=== PATIENT | male | born 1965 | race Caucasian/White ===

== ENCOUNTER 2020-08-11 00:19 | Outpatient (CLI) | payer OTHER, SELFPAY ==
[2020-08-11 19:24] LABS: SARS-CoV-2 RNA PCR Negative
== END 2020-08-11 00:20 | disposition home or self-care (01) ==
LOC: ANHCOVIDDT 00:19
PROVIDERS: PCP Physician Assistant; Visit Provider Internal Medicine Gastroenterology
DX: Z20.828 Contact with and (suspected) exposure to other viral communicable diseases (principal)
CPT/HCPCS: 87635; C9803; U0003

== ENCOUNTER 2020-08-14 00:45 | Day surgery (SDC) | payer OTHER, SELFPAY ==
[2020-08-08 08:24] VITALS: BMI 33.5
[2020-08-14 07:20] VITALS: BMI 33.3
[2020-08-14 07:22] VITALS: BP 143/93; PULSE 105; RESP 16; TEMP 36.2; O2SAT 97
[2020-08-14] MEDS: LACTATED RINGERS 1,000 ML 150 ML IV CONT (07:40)
--- NOTE | 2020-08-14 07:48 | WPDGICN ---
Assessment and Plan Assessment and plan (1) GERD (gastroesophageal reflux disease): Qualifiers: Esophagitis presence: esophagitis presence not specified Qualified Code(s): K21.9 - Gastro-esophageal reflux disease without esophagitis Code(s): K21.9 - Gastro-esophageal reflux disease without esophagitis Status: Acute Assessment and Plan: Because of chronic GE reflux disease. Epigastric pain that is not gone away with omeprazole 20 mg p.o. daily. Plan is for surveillance EGD. Lane diet advised further recommendations will be given after endoscopy. (2) Family history of colon cancer in mother: Code(s): Z80.0 - Family history of malignant neoplasm of digestive organs Status: Acute Assessment and Plan: Patient's mother had colon cancer. For this reason screening colonoscopy advised of at least 5 year intervals in the future. GI Consult Note Consult date/time: 08/14/20 07:48 HPI: Ramon Thompson is a 55 year old male Seen in evaluation at the request of Dr. Sallie Youngblood. patient presents for screening colonoscopy. His current weight appetite bowel movements are normal. Family history is significant his mother had colon cancer. Patient also complains of epigastric pain after eating this been present for more than 1 year. He notes associated regurgitation and belching. Symptoms occur at least several times a week. Patient denies any weight loss. He has had no obvious bleeding. Current medications included trial of omeprazole 20 mg p.o. daily. Review of Systems Review of Systems: All systems reviewed & are unremarkable except as noted in HPI and below PMFSH Past Medical History Medical History (Updated 08/14/20 @ 07:49 by Ted Almanza MD) Anxiety GERD (gastroesophageal reflux disease) Hypercholesterolemia Hypothyroidism Low testosterone in male Surgical History Surgical History History of repair of ACL 2001 & 06/2019 History of umbilical hernia repair Family History Family History Father Diabetes mellitus Hypertension Family history of kidney disease Family history of diabetes mellitus in first degree relative Grandparent Diabetes mellitus Family history of cardiovascular disease Mother Family history of hypercholesterolemia Sibling Family history of arthritis Other Cerebrovascular accident Social History Social History Smoking status: Never smoker Second hand tobacco smoke exposure: Yes (co-workers occasionally) Alcohol intake: current Drinks per week: 6 Substance use: never Substance use type: does not use Living arrangements: alone Gender identity (if verbalized by the patient): Male Spiritual care concerns: No Meds Home Medications and Allergies Home Medications Medication Instructions Recorded Confirmed Type testosterone 30 mg/actuation (1.5 1 pump TOPICAL DAILY 06/06/20 08/08/20 History mL) transderm solution metered pump atorvastatin 20 mg tablet 20 mg PO DAILY #90 tablet 06/07/20 08/08/20 Rx levothyroxine 175 mcg tablet 175 mcg PO DAILY #90 tablet 06/07/20 08/08/20 Rx Allergies Allergy/AdvReac Type Severity Reaction Status Date / Time Penicillins Allergy Unknown Skin Verified 08/14/20 07:18 irritation Vital Signs Vital Signs - 24 hr 08/14/20 07:22 Temperature 97.1 F L Pulse Rate 105 H Respiratory Rate 16 Blood Pressure 143/93 H Pulse Oximetry 97 Exam Narrative: Exam Narrative: Physical exam reveals patient to be alert. Vital signs stable. HEENT exam unremarkable. Lungs are clear to auscultation and percussion. Heart is without murmur or extra sounds. Abdominal exam bowel sounds are present soft nontender with no organomegaly. Digital external rectal exam normal.
--- NOTE | 2020-08-14 08:05 | WPDANESEPPF ---
Anes - Initial Pre Proc Eval Procedure: Operation Date: 08/14/20 08:30 Proposed Procedures p Esophagogastroduodenoscopy & Screening Colonoscopy - Ted Almanza MD Date/Time: 08/14/20 08:05 Surgeon: Ted Almanza MD Pre Op Diagnosis: Neoplasm Screen/ Fam Hx Colon Ca/ GERD Patient Data Age: 55 Gender: M Height: 5 ft 8 in Weight: 99.5 kg Last Vital Signs Temp 97.1 F L 08/14/20 07:22 Pulse 105 H 08/14/20 07:22 Resp 16 08/14/20 07:22 BP 143/93 H 08/14/20 07:22 Pulse Ox 97 08/14/20 07:22 Allergies Allergy/AdvReac Type Severity Reaction Status Date / Time Penicillins Allergy Unknown Skin Verified 08/14/20 07:18 irritation Home Medications Medication Instructions Recorded Confirmed Type testosterone 30 mg/actuation (1.5 1 pump TOPICAL DAILY 06/06/20 08/08/20 History mL) transderm solution metered pump atorvastatin 20 mg tablet 20 mg PO DAILY #90 tablet 06/07/20 08/08/20 Rx levothyroxine 175 mcg tablet 175 mcg PO DAILY #90 tablet 06/07/20 08/08/20 Rx Patient hx anesthesia problems: none Family hx anesthesia problems: none PMFSH Past Medical History Medical History (Updated 08/14/20 @ 07:49 by Ted Almanza MD) Anxiety GERD (gastroesophageal reflux disease) Hypercholesterolemia Hypothyroidism Low testosterone in male Surgical History Surgical History History of repair of ACL 2001 & 06/2019 History of umbilical hernia repair Family History Family History Father Diabetes mellitus Hypertension Family history of kidney disease Family history of diabetes mellitus in first degree relative Grandparent Diabetes mellitus Family history of cardiovascular disease Mother Family history of hypercholesterolemia Sibling Family history of arthritis Other Cerebrovascular accident Social History Social History Smoking status: Never smoker Second hand tobacco smoke exposure: Yes (co-workers occasionally) Alcohol intake: current Drinks per week: 6 Substance use: never Substance use type: does not use Living arrangements: alone Gender identity (if verbalized by the patient): Male Spiritual care concerns: No Anes - Eval Final PreProcedure Day of Procedure 08/14/20 08:05 Patient weight: overweight Heart: regular rate and rhythm Lungs: clear to auscultation Airway: Mallampati scale class II Neurological: alert and oriented Last oral intake: >/= 8 hours ASA classification: II Emergent: no Anesthetic plan: proceed Anesthesia type and monitoring: general GIVS and standard monitoring Informed Consent: The patient's anesthetic plan and its attendant risks and benefits were discussed with the patient/family/POA. Questions were solicited and answers provided to the satisfaction of the patient/family/POA.
[2020-08-14] MEDS: BENZOCAINE (*SP) 60 ML SPRAY CAN (HURRICAINE) 1 SPRAY MUCOUS MEM (08:11)
--- NOTE | 2020-08-14 08:22 | SUR.OPER ---
EGD ENDED 816 COLONOSCOPY STARTED 821
[2020-08-14 08:37] VITALS: BP 144/94; PULSE 92; RESP 22; O2SAT 100
[2020-08-14 08:47] VITALS: BP 153/90; PULSE 91; RESP 20; O2SAT 100
[2020-08-14 08:57] VITALS: BP 134/87; PULSE 89; RESP 20; O2SAT 100
== END 2020-08-14 09:21 | disposition home or self-care (01) ==
PROVIDERS: PCP Physician Assistant; Visit Provider Internal Medicine Gastroenterology
PROC: 0DJ08ZZ Inspection of Upper Intestinal Tract, Via Natural or Artificial Opening Endoscopic (ICD-10-PCS; CPT 43235; principal; 2020-08-14 08:30)
DX: Z12.11 Encounter for screening for malignant neoplasm of colon (principal); K64.8 Other hemorrhoids; K51.40 Inflammatory polyps of colon without complications; K57.30 Diverticulosis of large intestine without perforation or abscess without bleeding; K21.9 Gastro-esophageal reflux disease without esophagitis; R10.13 Epigastric pain; Z80.0 Family history of malignant neoplasm of digestive organs; E78.00 Pure hypercholesterolemia, unspecified; E03.9 Hypothyroidism, unspecified; F41.9 Anxiety disorder, unspecified; E29.1 Testicular hypofunction
CPT/HCPCS: 45385; 43239; 87081; 87635; 88305; C9803; J2704; J7120; U0003

== ENCOUNTER 2024-10-22 09:59 | Outpatient (CLI) | payer OTHER, SELFPAY ==
--- NOTE | 2024-10-22 10:13 | ECG_ITS ---
Test Date: 2024-10-22 10:24:13 Measurements Intervals [place] Rate: 91 P: 36 HI: 135 QRS: 42 QRSD: 95 T: 26 QT: 346 QTc: 427 Interpretive Statements SINUS RHYTHM WITH SINUS ARRHYTHMIA No previous ECG available for comparison Electronically Signed On 10-22-2024 14:38:08 CONTAINER WASHER by Shameka Eldridge M.D.
--- OUTSIDE RECORDS SUMMARY | 2024-10-22 10:16 | XMS_ITS | Referral Summary ---
Author Organization [address] Address [address] [place] [id number] Care Team Providers Care Cutter Finisher Name Role Phone Marija Castillo MD Primary Care Provider [phone]- [phone] Allergies Active Allergy Reactions Criticality Noted Date Comments Penicillins Rash Medium 03/03/2019 Medications testosterone 30 mg/actuation (1.5 mL) solution in metered pump w/ayde AYDE 1 PUMP TOPICALLY TO EACH UNDERARM QD IN THE MORNING 3 9 Active tadalafil (CIALIS) 20 mg tablet TK 1 T PO PRIOR TO SEXUAL INTERCOURSE ONCE D PRN 5 9 Active SYNTHROID 175 mcg tablet 9 Active atorvastatin (LIPITOR) 20 mg tablet 9 Active Active Problems No known active problems Social History Tobacco Use Types Packs/Day Years Used Date Smoking Tobacco: Never Personal Safety Answer Date Recorded Getting School Help Needed Not on file 12/05 Sex and Gender Information Value Date Recorded Sex Assigned at Not on file Legal 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 Gender Identity Not on file Sexual Orientation Not on file Last Filed Vital Signs Vital Sign Reading Time Taken Comments Blood Pressure - - Pulse - - Temperature - - Respiratory Rate - - Oxygen Saturation - - Inhaled Oxygen Concentration - - Weight 99.8 kg (220 lb) 11/10/2019 3:21 PM MEDICAL RECORDS DIRECTOR Height 172.7 cm (5' 8 ) 11/10/2019 3:21 PM MEDICAL RECORDS DIRECTOR Body Mass Index 33.45 11/10/2019 3:21 PM MEDICAL RECORDS DIRECTOR Plan of Treatment Not on file Insurance [employer] Care Teams Cutter Finisher Relationship Specialty Start Date End Date Marija Castillo MD PCP - General Family Practice 02/23/19
--- OUTSIDE RECORDS SUMMARY | 2024-10-22 10:16 | XMS_ITS | Clinical Summary ---
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 Gender Identity Not on file Sexual Orientation Not on file Obstetrics History Last Filed Vital Signs Vital Sign Reading Time Taken Comments Blood Pressure - - Pulse - - Temperature - - Respiratory Rate - - Oxygen Saturation - - Inhaled Oxygen Concentration - - Weight 99.8 kg (220 lb) 11/10/2019 3:21 PM CATERING CHEF Height 172.7 cm (5' 8 ) 11/10/2019 3:21 PM CATERING CHEF Body Mass Index 33.45 11/10/2019 3:21 PM CATERING CHEF Plan of Treatment Not on file Insurance [employer] Care Teams Motor Coach Chauffeur Relationship Specialty Start Date End Date Marija Castillo MD PCP - General Family Practice 02/23/19
== END 2024-10-22 10:00 | disposition home or self-care (01) ==
LOC: ANHLAB 10:02 → ANHCARD 10:03
PROVIDERS: PCP Family Medicine; Visit Provider Family Medicine
DX: Z01.818 Encounter for other preprocedural examination (principal); E78.5 Hyperlipidemia, unspecified; I49.8 Other specified cardiac arrhythmias
CPT/HCPCS: 93005

== ENCOUNTER 2025-03-15 00:26 | Day surgery (SDC) | payer OTHER, SELFPAY ==
[2025-02-28 13:23] VITALS: BMI 33.5
[2025-03-15 06:14] VITALS: BP 143/83; PULSE 85; RESP 18; TEMP 36.7; O2SAT 99; BMI 34.8
[2025-03-15] MEDS: LACTATED RINGERS 1,000 ML 150 ML IV CONT (06:35)
--- NOTE | 2025-03-15 07:18 | P.PNAN_ITS ---
Anes - Initial Pre Proc Eval Procedure: Operation Date: 03/15/25 07:30 Proposed Procedures p Colonoscopy - Arsalan Jennings MD Date/Time: 03/15/25 07:18 Surgeon: Arsalan Jennings MD Pre Op Diagnosis: Hemorrhage of anus and rectum Patient Data Age: 60 Gender: M Height: 1.73 m Weight: 104 kg Last Vital Signs Temp 36.7 C 03/15/25 06:14 Pulse 85 03/15/25 06:14 Resp 18 03/15/25 06:14 BP 143/83 H 03/15/25 06:14 Pulse Ox 99 03/15/25 06:14 O2 Del Method Room Air 03/15/25 06:14 Allergies Allergy/AdvReac Type Severity Reaction Status Date / Time Penicillins Allergy Severe Hives Verified 03/15/25 06:19 Home Medications ?Medication ?Instructions ?Recorded ?Confirmed ?Type testosterone 30 mg/actuation (1.5 1 pump topical DAILY 06/06/20 03/15/25 History mL) transderm solution metered pump ascorbic acid (vitamin C) 500 mg 500 mg PO DAILY 05/09/21 03/15/25 History tablet mmrzgpeqflju-xpg-jsfou acid-vit 1 tablet PO DAILY 05/09/21 03/15/25 History K-lycop 400 mcg-20 mcg-370 mcg tablet (Men's 50 Plus Multivitamin) sildenafil 25 mg tablet 25 mg PO DAILY PRN 11/07/21 01/21/25 History omega 3-svr-fwu-fish oil 1,000 mg 1 cap PO DAILY 05/08/22 03/15/25 History (120 mg-180 mg) capsule (Fish Oil) levothyroxine 200 mcg tablet 200 mcg PO DAILY #90 tabs 10/26/24 03/15/25 Rx (Levoxyl) atorvastatin 20 mg tablet 20 mg PO DAILY #90 tabs 12/24/24 03/15/25 Rx omeprazole 20 mg capsule,delayed 20 mg PO DAILY #90 caps 12/24/24 03/15/25 Rx release Patient hx anesthesia problems: none Family hx anesthesia problems: none Results Review: All pre-operative results and documents have been reviewed as part of the pre- operative evaluation. [facility] Past Medical History Medical History Bulging disc Cataract, right eye Low testosterone in male GERD (gastroesophageal reflux disease) Anxiety Hypothyroidism Hypercholesterolemia Surgical History Surgical History History of repair of ACL 2001 & 06/2019 History of umbilical hernia repair Family History Family History Father Diabetes mellitus Hypertension Family history of kidney disease Family history of diabetes mellitus in first degree relative Grandparent Diabetes mellitus Family history of cardiovascular disease Mother Family history of hypercholesterolemia Sibling Family history of arthritis Other Cerebrovascular accident Social History Social History Smoking status: Never smoker Second hand tobacco smoke exposure: Yes (co-workers occasionally) Alcohol intake: current Drinks per week: 6 Alcohol use details: consumes 4 beers weekly Substance use: never Substance use type: does not use Lack of Transportation: No Lack of Food: Never True Current Housing: I Have Housing Concerned About Future Housing: No Difficulty Paying Gas/Electric Bills: No Difficulty Paying for Meds: No Currently Unemployed: No Education: Trade/Vocational Certificate Difficulty w/ Childcare or Family Care: No Living arrangements: with friend(s) Gender identity (if verbalized by the patient): Male Spiritual care concerns: No Anes - Eval Final PreProcedure Day of Procedure 03/15/25 07:18 Patient weight: obese Heart: regular rate and rhythm Lungs: clear to auscultation Airway: Mallampati scale class II Neurological: alert and oriented Last oral intake: >/= 8 hours ASA classification: III Emergent: no Anesthetic plan: proceed Anesthesia type and monitoring: general GIVS and standard monitoring Results Review: All pre-operative results and documents have been reviewed as part of the pre- operative evaluation. Informed Consent: The patient's anesthetic plan and its attendant risks and benefits were discuss ed with the patient/family/POA. Questions were solicited and answers provided to the satisfaction of the patient/family/POA.
--- NOTE | 2025-03-15 07:28 | PM.IMHP ---
H&P: HPI History of Present Illness Date/Time: 03/15/25 07:28 Chief Complaint: Family history of colorectal cancer -history of colon polyps Narrative: This patient has family history of colorectal cancer. his mother was diagnosed when she was 62. In addition, the patient had a colonoscopy 3 years ago, finding polyps. Review of Systems Review of Systems: All systems reviewed & are unremarkable except as noted in HPI and below PMFSH Past Medical History Medical History Bulging disc Cataract, right eye Low testosterone in male GERD (gastroesophageal reflux disease) Anxiety Hypothyroidism Hypercholesterolemia Surgical History Surgical History History of repair of ACL 2001 & 06/2019 History of umbilical hernia repair Family History Family History Father Diabetes mellitus Hypertension Family history of kidney disease Family history of diabetes mellitus in first degree relative Grandparent Diabetes mellitus Family history of cardiovascular disease Mother Family history of hypercholesterolemia Sibling Family history of arthritis Other Cerebrovascular accident Social History Social History Smoking status: Never smoker Second hand tobacco smoke exposure: Yes (co-workers occasionally) Alcohol intake: current Drinks per week: 6 Alcohol use details: consumes 4 beers weekly Substance use: never Substance use type: does not use Lack of Transportation: No Lack of Food: Never True Current Housing: I Have Housing Concerned About Future Housing: No Difficulty Paying Gas/Electric Bills: No Difficulty Paying for Meds: No Currently Unemployed: No Education: Trade/Vocational Certificate Difficulty w/ Childcare or Family Care: No Living arrangements: with friend(s) Gender identity (if verbalized by the patient): Male Spiritual care concerns: No Meds Home Medications and Allergies Home Medications ?Medication ?Instructions ?Recorded ?Confirmed ?Type testosterone 30 mg/actuation (1.5 1 pump topical DAILY 06/06/20 03/15/25 History mL) transderm solution metered pump ascorbic acid (vitamin C) 500 mg 500 mg PO DAILY 05/09/21 03/15/25 History tablet swmkppbjewyf-mqu-tddsm acid-vit 1 tablet PO DAILY 05/09/21 03/15/25 History K-lycop 400 mcg-20 mcg-370 mcg tablet (Men's 50 Plus Multivitamin) sildenafil 25 mg tablet 25 mg PO DAILY PRN 11/07/21 01/21/25 History omega 6-wma-tbt-fish oil 1,000 mg 1 cap PO DAILY 05/08/22 03/15/25 History (120 mg-180 mg) capsule (Fish Oil) levothyroxine 200 mcg tablet 200 mcg PO DAILY #90 tabs 10/26/24 03/15/25 Rx (Levoxyl) atorvastatin 20 mg tablet 20 mg PO DAILY #90 tabs 12/24/24 03/15/25 Rx omeprazole 20 mg capsule,delayed 20 mg PO DAILY #90 caps 12/24/24 03/15/25 Rx release Allergies Allergy/AdvReac Type Severity Reaction Status Date / Time Penicillins Allergy Severe Hives Verified 03/15/25 06:19 Vital Signs Vital Signs - 24 hr 03/15/25 06:14 Temperature 98.0 F Pulse Rate 85 Respiratory Rate 18 Blood Pressure 143/83 H Pulse Oximetry 99 Oxygen Delivery Room Air Exam Const: General: cooperative and healthy appearing Resp: Effort & Inspection: normal respiratory effort and able to speak in complete sentences Auscultation: clear to auscultation bilaterally Cardio: Rate: regular rate Rhythm: regular rhythm GI: Inspection: normal to inspection GI Palp: No No hepatosplenomegaly present Auscultation: normal bowel sounds Rectal Exam: deferred Skin: General skin exam: normal color Psych: Appearance: grossly normal Mental Status: mental status grossly normal Assessment and Plan Assessment and plan (1) Colon cancer screening: Code(s): Z12.11 - Encounter for screening for malignant neoplasm of colon Status: Acute Assessment and Plan: The patient is deemed a good candidate for the procedure. Consent signed. Will proceed.
[2025-03-15 07:53] VITALS: BP 112/77; PULSE 84; RESP 25; O2SAT 96
[2025-03-15 08:03] VITALS: BP 121/73; PULSE 83; RESP 20; O2SAT 96
[2025-03-15 08:13] VITALS: BP 128/62; PULSE 81; RESP 20; O2SAT 100
== END 2025-03-15 08:25 | disposition home or self-care (01) ==
PROVIDERS: PCP Family Medicine; Referring Provider Student in an Organized Health Care Education/Training Program; Visit Provider Internal Medicine Gastroenterology
PROC: 0DJD8ZZ Inspection of Lower Intestinal Tract, Via Natural or Artificial Opening Endoscopic (ICD-10-PCS; CPT 45378; principal; 2025-03-15 07:30)
DX: Z12.11 Encounter for screening for malignant neoplasm of colon (principal); K64.8 Other hemorrhoids; K57.30 Diverticulosis of large intestine without perforation or abscess without bleeding; E29.1 Testicular hypofunction; K21.9 Gastro-esophageal reflux disease without esophagitis; F41.9 Anxiety disorder, unspecified; E03.9 Hypothyroidism, unspecified; E66.9 Obesity, unspecified; Z68.34 Body mass index [BMI] 34.0-34.9, adult; Z98.890 Other specified postprocedural states; Z86.0100 Personal history of colon polyps, unspecified; Z80.0 Family history of malignant neoplasm of digestive organs; Z82.49 Family history of ischemic heart disease and other diseases of the circulatory system
CPT/HCPCS: 45378; J2003; J2704; J7120